=== PATIENT | male | born 1995 | race Caucasian/White ===

== ENCOUNTER 2020-06-13 00:25 | Emergency (ER) | payer OTHER ==
[~2020-06-13] VITALS: Ht 177.8 cm; Wt 94.8 kg
[2020-06-13] MEDS ORDERED: TETANUS/DIPHTHERIA TOX ADULT 0.5 ML SYR ONE (01:00)
[2020-06-13] MEDS ORDERED: CEFTRIAXONE SOD 1 GM VIAL ONE (01:00)
[2020-06-13] MEDS ORDERED: TETANUS/DIPHTHERIA TOX ADULT 0.5 ML SYR IM ONE (01:00)
[2020-06-13] MEDS ORDERED: LIDOCAINE HCL 1% LOCAL INJ 20 ML VIAL ONE (01:00)
[2020-06-13] MEDS ORDERED: CEFTRIAXONE SOD 1 GM 50 ML IV ONE (01:00)
[2020-06-13] MEDS ORDERED: CEFTRIAXONE SOD 1 GM/50 ML BAG IV ONE (01:00)
== END 2020-06-13 01:15 | disposition home or self-care (01) ==
LOC: FSED 00:47
DX: L03.115 Cellulitis of right lower limb (principal)
CPT/HCPCS: 90471; 90714; 99282; J0696; J2001